=== PATIENT | male | born 1955 | race Caucasian/White ===

== ENCOUNTER 2019-07-12 11:02 | Emergency (ER) | payer BC, MEDICARE ==
[2019-07-12] MEDS ORDERED: predniSONE 20 MG Tab PO ONE (11:20)
--- NOTE | 2019-07-12 11:27 | EDM.PDOC ---
ED HPI GENERAL MEDICAL PROBLEM - General Chief Complaint: General Stated Complaint: POSSIBLE STROKE Time Seen by Provider: 07/12/19 11:20 Source of Information: Reports: Patient, Family History Limitations: Reports: No Limitations - History of Present Illness INITIAL COMMENTS - FREE TEXT/NARRATIVE: aTl comes to [facility] ED from the [facility] for assessment of L sided facial weakness over the past 6 days. Sxs occurred spontaneously, with reported L sided neck pain behind and below L ear. There was no reported visual disturbance , ear pain or discharge, rash, or hearing loss. Chewing became problematic with food exiting from the L corner of the mouth. He saw PCP this am who requested medical examination in the ED. Upon arrival, he is alert, orientated, and cooperative, GCS 15. - Related Data Allergies Allergy/AdvReac Type Severity Reaction Status Date / Time No Known Allergies Allergy Verified 07/12/19 11:21 Home Meds: Home Meds predniSONE [Prednisone] 60 mg PO DAILY #20 tablet 07/12/19 [Rx] valACYclovir [Valtrex] 1,000 mg PO TID #20 tab 07/12/19 [Rx] Past Medical History Cardiovascular History: Reports: Hypertension ED ROS GENERAL - Review of Systems Review Of Systems: Comprehensive ROS is negative, except as noted in HPI. ED EXAM, GENERAL - Physical Exam Exam: See Below Exam Limited By: No Limitations General Appearance: Alert, WD/WN, No Apparent Distress, Obese Eye Exam: Left Eye: Normal Inspection (unable to close L eye margins), Bilateral Eye: EOMI, PERRL Ears: Normal External Exam, Normal TMs Ear Exam: Left Ear: Tenderness (tenderness overlying styloid process), Bilateral Ear: Auricle Normal, Canal Normal, TM normal Nose: Normal Inspection, Normal Mucosa Throat/Mouth: Normal Gums, Normal Oropharynx, Normal Voice, Other (L facial drooping, speech is uneven but not slurred, tongue midline) Head: Atraumatic, Other (facial asymmetry with L hemiparalysis affecting all divisions of VII Nerve) Neck: Normal Inspection, Supple, Full Range of Motion, Tender Lateral (at L styloid process) Respiratory/Chest: Lungs Clear Cardiovascular: Regular Rate, Rhythm, No Murmur Neurological: Alert, Oriented, CN II-XII Intact, Normal Cognition, Normal Gait, Normal Reflexes, Other (no sensory deficit) Psychiatric: Normal Affect, Normal Mood Skin Exam: Warm, Dry, Intact, Normal Color, No Rash Lymphatic: No Adenopathy Course - Vital Signs Text/Narrative:: Clinical diagnosis of [place] Palsy. I administered Valrex 1 gm po and Prednisone 60 mg po before discharge. Last Recorded V/S: Last Vital Signs Temp 36.0 C 07/12/19 11:15 Pulse 65 07/12/19 11:15 Resp 18 07/12/19 11:15 BP 137/87 07/12/19 11:15 Pulse Ox 100 07/12/19 11:15 - Orders/Labs/Meds Orders: Active Orders 24 hr Category Date Time Status valACYclovir [Valtrex] Med 07/12/19 11:38 Active 1,000 mg PO DAILY Medication Orders Valacyclovir HCl (Valtrex) 1,000 mg PO DAILY RITIKA Last Admin: 07/12/19 11:46 Dose: 1,000 mg Meds: Medications Generic Name Dose Route Start Last Admin Trade Name Freq PRN Reason Stop Dose Admin Valacyclovir HCl 1,000 mg 07/12/19 11:38 07/12/19 11:46 Valtrex PO 1,000 mg DAILY RITIKA Administration Discontinued Medications Generic Name Dose Route Start Last Admin Trade Name Freq PRN Reason Stop Dose Admin Prednisone 60 mg 07/12/19 11:20 07/12/19 11:45 Prednisone PO 07/12/19 11:21 60 mg ONETIME ONE Administration Valacyclovir HCl 1,000 mg 07/13/19 09:00 Valtrex PO DAILY [facility] Departure - Departure Time of Disposition: 11:50 Disposition: Home, Self-Care 01 Condition: Fair Clinical Impression: Watson's palsy - Discharge Information *PRESCRIPTION DRUG MONITORING PROGRAM REVIEWED*: Not Applicable *COPY OF PRESCRIPTION DRUG MONITORING REPORT IN PATIENT ENID: Not Applicable Prescriptions: predniSONE [Prednisone] 60 mg PO DAILY #20 tablet valACYclovir [Valtrex] 1,000 mg PO TID #20 tab Instructions: Watson Palsy, Adult Referrals: David Carrillo PA [Primary Care Provider] - Forms: ED Department Discharge Additional Instructions: Follow up with your Primary Care Provider as directed by Dr. Slater. Take the medications as directed. Call for any questions or may come back to the ED if symptoms get acutely worse. Sepsis Event Note - Evaluation Sepsis Screening Result: No Definite Risk - Focused Exam Vital Signs: Vital Signs Temp Pulse Resp BP Pulse Ox 07/12/19 11:15 36.0 C 65 18 137/87 100 Date Exam was Performed: 07/12/19 Time Exam was Performed: 11:58 - Problem List & Annotations (1) Watson's palsy SNOMED Code(s): 604802207 Code(s): G51.0 - WATSON'S PALSY Status: Acute Current Visit: Yes Annotation/Comment:: I dispensed Valtrex 1 gm tid x 1 week and Prednisone 60 mg qd x 1 week. He will also need to apply ophthalmic oint to L eye at HS and tape eyelid shut. He may use ophthalmic gtts daily to L eye for moisturizing. - Problem List Review Problem List Initiated/Reviewed/Updated: Yes - My Orders Last 24 Hours: My Active Orders 07/12/19 11:38 valACYclovir [Valtrex] 1,000 mg PO DAILY - Assessment/Plan Last 24 Hours: My Active Orders 07/12/19 11:38 valACYclovir [Valtrex] 1,000 mg PO DAILY Plan: Follow up with PCP if 1 week.
[2019-07-12] MEDS ORDERED: valACYclovir 1,000 MG Tab PO SCH (11:38)
[2019-07-13] MEDS ORDERED: valACYclovir 1,000 MG Tab PO SCH (09:00)
== END 2019-07-12 11:58 | disposition home or self-care (01) ==
LOC: FB.ED 11:02
DX: G51.0 Bell's palsy (principal); I10 Essential (primary) hypertension; Z79.899 Other long term (current) drug therapy
CPT/HCPCS: 99283; 99284; A9270